=== PATIENT | male | born 1970 | race Caucasian/White ===

== ENCOUNTER 2018-04-21 21:37 | Emergency (ER) | payer MEDICAID ==
[~2018-04-21] VITALS: Ht 182.9 cm; Wt 71.0 kg
[~2018-04-21 21:37] MED LIST: ALBU6.7H INH; DICL100G15 TOP; NAPR250T4 PO; NO HOME MEDS
[2018-04-22 00:45] VITALS: BP 152/101
== END 2018-04-22 00:46 | disposition home or self-care (01) ==
LOC: ER 21:38
DX: I10 Essential (primary) hypertension (principal); J45.909 Unspecified asthma, uncomplicated; F17.210 Nicotine dependence, cigarettes, uncomplicated; Z88.6 Allergy status to analgesic agent
CPT/HCPCS: 99283

== ENCOUNTER 2018-06-16 08:43 | Emergency (ER) | payer MEDICAID, OTHER ==
[~2018-06-16] VITALS: Ht 182.9 cm; Wt 61.5 kg
[2018-06-16] MEDS ORDERED: ondansetron 4mg rapidly disintigrating tab PO ONE (09:50)
--- NOTE | 2018-06-16 10:01 | NUR ---
Notified MD regarding BP. Placed pt on non-rebreather and will reassess in 15 minutes per MD resuest.
--- NOTE | 2018-06-16 10:45 | NUR ---
Pt denies any relief from non-rebreather. MD notified, will await orders.
[2018-06-16] MEDS ORDERED: proCHLORperazine 10 MG/2 ml inj IM ONE (10:50)
[2018-06-16] MEDS ORDERED: ketorolac trometh inj. 60 MG/2 ML VIAL IM ONE (10:50)
[2018-06-16 11:00] VITALS: BP 151/94
[2018-06-16] MEDS ORDERED: HYDROcodone/acetaminophen 10/325mg tab PO ONE (11:50)
[2018-06-16] MEDS ORDERED: morphine 4 MG/ML inj SYRINge IM ONE (11:50)
== END 2018-06-16 12:59 | disposition home or self-care (01) ==
LOC: ER 08:44
DX: R51 Headache (principal); R11.0 Nausea; I10 Essential (primary) hypertension; J45.909 Unspecified asthma, uncomplicated; Z88.6 Allergy status to analgesic agent; Z98.890 Other specified postprocedural states
CPT/HCPCS: 70450; 96372; 99284; J0780; J1885

== ENCOUNTER 2021-11-29 18:42 | Inpatient (IN) | payer MEDICAID, OTHER ==
[~2021-11-29] VITALS: Ht 182.9 cm; Wt 77.3 kg
[~2021-11-29 18:42] MED LIST changes: -ALBU6.7H INH; +ALBU6.7H9 INH; +NAPR-1170 PO; -NAPR250T4 PO
--- NOTE | 2021-11-29 19:18 | NUR ---
PT PUT ON 2 L VIA NASAL CANNULA, PER MD GILMORE VERBAL ORDERS
--- NOTE | 2021-11-29 19:19 | NUR ---
PT PUT ON 2 L OXYGEN VIA NASAL CANNULA, PER MD GILMORE VERBAL ORDERS
[2021-11-29] MEDS ORDERED: ipratropium/albuterol 3ml nebule NEB ONE (19:20)
[2021-11-29] MEDS ORDERED: aspirin 81mg tab.chew PO ONE (19:20)
[2021-11-29] MEDS ORDERED: methylPREDNISolone sod succ 125mg/2ml vial IV ONE (19:40)
[2021-11-29 19:49] LABS: BASOPHILS # (AUTO) 0.1 X10'3 (0-0.2); BASOPHILS % (AUTO) 0.7 % (0-1); EOSINOPHILS % (AUTO) 10.2 % (0-6); HEMATOCRIT 47.9 % (42.0-52.0); HEMOGLOBIN 16.3 g/dl (14.0-17.9); LYMPHOCYTES # (AUTO) 4.5 X10'3 (1.1-4.8); LYMPHOCYTES % (AUTO) 44.7 % (21-51); MEAN CORPUSCULAR HGB CONC 33.9 g/dL (33.0-36.5); MEAN CORPUSCULAR VOLUME 88.3 FL (78-98); MEAN PLATELET VOLUME 7.8 FL (7.4-10.4); MONOCYTES # (AUTO) 0.6 X10'3 (0-0.9); MONOCYTES % (AUTO) 6.1 % (2-12); NEUTROPHILS # (AUTO) 3.8 X10'3 (1.8-7.7); NEUTROPHILS % (AUTO) 38.3 % (42-75); PLATELET COUNT 379 X10'3 (140-440); RED BLOOD COUNT 5.43 X10'6 (4.70-6.10); RED CELL DISTRIBUTION WIDTH 14.2 % (11.5-14.5)
[2021-11-29 20:01] LABS: D-DIMER 0.36 MG/L FEU (0-0.50)
[2021-11-29 20:11] LABS: ALANINE AMINOTRANSFERASE 59 U/L (12-78); ALBUMIN 3.8 G/DL (3.4-5.0); ALBUMIN/GLOBULIN RATIO 0.8 (1.1-1.5); ALKALINE PHOSPHATASE 101 IU/L (46-116); ANION GAP 9 (8-16); ASPARTATE AMINO TRANSFERASE 28 U/L (10-37); BILIRUBIN,TOTAL 0.4 MG/DL (0.1-1.0); BLOOD UREA NITROGEN 10 MG/DL (7-18); BUN/CREATININE RATIO 10.9 (5.4-32.0); CALCIUM 8.9 MG/DL (8.5-10.1); CHLORIDE 105 MMOL/L (99-107); CREATININE 0.92 MG/DL (0.60-1.10); GLUCOSE 93 MG/DL (70-104); POTASSIUM 3.6 MMOL/L (3.5-5.1); SODIUM 142 MMOL/L (135-145); TOTAL CARBON DIOXIDE 28.1 MMOL/L (24-32); TOTAL PROTEIN 8.5 G/DL (6.4-8.2); eGFR 87 ML/MIN
[2021-11-29 20:13] LABS: LIPASE 154 U/L (73-393); MAGNESIUM 2.1 MG/DL (1.5-2.4)
[2021-11-29] MEDS ORDERED: albuterol 2.5 MG/3 ML nebule NEB ONE (21:00)
[2021-11-29] MEDS ORDERED: nitroGLYCERIN 0.4mg/hour patch TD ONE (21:00)
[2021-11-29] MEDS ORDERED: temazepam 15mg capsule PO PRN (21:00)
[2021-11-29] MEDS ORDERED: bisacodyl 10mg suppository rectal RC PRN (22:00)
[2021-11-29] MEDS ORDERED: ondansetron 4mg rapidly disintigrating tab PO PRN (22:00)
[2021-11-29] MEDS ORDERED: acetaminophen 650mg rectal suppository RC PRN (22:00)
[2021-11-29] MEDS ORDERED: diphenhydrAMINE 25mg capsule PO PRN (22:00)
[2021-11-29] MEDS ORDERED: acetaminophen 325mg tablet PO PRN ×2 (22:00)
[2021-11-29] MEDS ORDERED: ondansetron/PF 4mg/2ml inj IV PRN (22:00)
[2021-11-29] MEDS ORDERED: magnesium hydroxide 30ml (MOM) UD suspension PO PRN (22:00)
[2021-11-29] MEDS ORDERED: diphenhydrAMINE 50 mg/ml inj IV PRN (22:00)
[2021-11-29] MEDS ORDERED: niCARdipine I.V. 50 MG in normal saline 250ml IV soln 230 ML IV SCH (22:05)
[2021-11-29 22:22] LABS: APTT 28 SECONDS (22-32)
[2021-11-29 22:33] LABS: CREATINE KINASE 315 U/L (39-308)
--- NOTE | 2021-11-29 22:38 | NUR ---
SPOKE WITH DR. BARAJAS IN PERSON. HOLDING CARDENE DRIP UNLESS BP SYSTOLIC REACHES 190-200.
[2021-11-29] MEDS: ipratropium/albuterol 3ml nebule NEB SCH (23:00)
[2021-11-29] MEDS: dextrose 5%-1/2 normal saline 1,000 ML IV SCH (23:41)
[2021-11-30] MEDS: heparin, porcine 5000 units/ml vial SQ SCH ×3 (00:14→16:37)
--- NOTE | 2021-11-30 00:35 | NUR ---
Patient in room ED 9. I have received report from Annika FLETCHER and had the opportunity to ask questions and assume patient care.
[2021-11-30 00:50] VITALS: BP 136/94
[2021-11-30] MEDS: mag hydrox/Alum hydrox/simeth 30ml oral suspension PO PRN ×2 (01:22→10:35)
[2021-11-30] MEDS: ipratropium/albuterol 3ml nebule NEB SCH ×5 (02:08→20:28)
[2021-11-30 06:00] VITALS: BP 131/75
--- NOTE | 2021-11-30 06:04 | NUR ---
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
--- NOTE | 2021-11-30 06:26 | NUR ---
Problems reprioritized. Patient report given, questions answered & plan of care reviewed with Deysi FLETCHER.
[2021-11-30 06:39] LABS: BASOPHILS % (AUTO) 0.1 % (0-1); EOSINOPHILS % (AUTO) 0 % (0-6); HEMATOCRIT 41.4 % (42.0-52.0); HEMOGLOBIN 14.1 g/dl (14.0-17.9); LYMPHOCYTES # (AUTO) 1.2 X10'3 (1.1-4.8); LYMPHOCYTES % (AUTO) 12.9 % (21-51); MEAN CORPUSCULAR VOLUME 88.3 FL (78-98); MEAN PLATELET VOLUME 7.6 FL (7.4-10.4); MONOCYTES # (AUTO) 0.1 X10'3 (0-0.9); MONOCYTES % (AUTO) 0.6 % (2-12); NEUTROPHILS # (AUTO) 7.9 X10'3 (1.8-7.7); NEUTROPHILS % (AUTO) 86.4 % (42-75); PLATELET COUNT 332 X10'3 (140-440); RED BLOOD COUNT 4.69 X10'6 (4.70-6.10); WHITE BLOOD COUNT 9.2 X10'3 (4.5-11.0)
[2021-11-30 06:50] LABS: ALANINE AMINOTRANSFERASE 44 U/L (12-78); ALBUMIN 3.2 G/DL (3.4-5.0); ALBUMIN/GLOBULIN RATIO 0.8 (1.1-1.5); ALKALINE PHOSPHATASE 78 IU/L (46-116); ANION GAP 11 (8-16); ASPARTATE AMINO TRANSFERASE 24 U/L (10-37); BILIRUBIN,TOTAL 0.3 MG/DL (0.1-1.0); BLOOD UREA NITROGEN 14 MG/DL (7-18); BUN/CREATININE RATIO 14.1 (5.4-32.0); CALCIUM 8.4 MG/DL (8.5-10.1); CHLORIDE 103 MMOL/L (99-107); CREATININE 0.99 MG/DL (0.60-1.10); GLUCOSE 172 MG/DL (70-104); SODIUM 138 MMOL/L (135-145); TOTAL CARBON DIOXIDE 24.4 MMOL/L (24-32); TOTAL PROTEIN 7.1 G/DL (6.4-8.2); eGFR 80 ML/MIN
--- NOTE | 2021-11-30 07:03 | NUR ---
Patient in room PCU 3013B. I have received report from JUSTINE VILLANUEVA and had the opportunity to ask questions and assume patient care.
[2021-11-30] MEDS ORDERED: metoprolol tartrate 50mg tablet PO SCH (08:00)
[2021-11-30] MEDS ORDERED: doxycycline inj 100 MG in normal saline 100ml IV soln 100 ML IV SCH (08:00)
[2021-11-30] MEDS ORDERED: methylPREDNISolone sod succ 125mg/2ml vial IV SCH ×2 (08:00→14:00)
[2021-11-30] MEDS: dextrose 5%-1/2 normal saline 1,000 ML IV SCH ×2 (10:30→18:00)
[2021-11-30] MEDS: docusate sod 100mg capsule PO SCH ×2 (10:36→19:52)
[2021-11-30] MEDS: pantoprazole 40mg Tablet.DR PO SCH (10:36)
[2021-11-30] MEDS: atorvastatin 20mg tablet PO SCH (10:36)
[2021-11-30] MEDS: metoprolol tartrate 25mg tablet PO SCH ×2 (10:37→19:54)
[2021-11-30] MEDS: lisinopril 10 MG tablet PO SCH (10:37)
[2021-11-30] MEDS: aspirin 81mg, enteric-coated 1 TAB TABLET.DR PO SCH (10:37)
[2021-11-30] MEDS ORDERED: niCARDipine-NS 40mg/200ml IVPB 200 ML IV SCH (10:58)
[2021-11-30 11:00] VITALS: BP 127/80
[2021-11-30] MEDS ORDERED: magnesium 4gm in 100ml NS 100 ML IV PRN (11:25)
[2021-11-30] MEDS ORDERED: potassium CL 10mEq/100ml bag 100 ML IV PRN (11:25)
[2021-11-30] MEDS ORDERED: potassium Cl 20 mEq SR tablet PO PRN ×2 (11:25)
[2021-11-30] MEDS ORDERED: magnesium Cl slow-release 64mg tablet PO PRN (11:25)
--- NOTE | 2021-11-30 12:10 | NUR ---
CRITICAL LAB VALUE TAKEN FROM LAB, REPORTED TO PRIMARY RN.
--- NOTE | 2021-11-30 12:12 | NUR ---
CRITICAL TROP Mikey, PAGED AWAITING CALL BACK Message: ANDREAS GOODMAN [id number]: CRITICAL TROP 77, DOWN FROM 157. THANK YOU JENN [phone] Transaction number: [id number]
[2021-11-30] MEDS ORDERED: ipratropium/albuterol 3ml nebule NEB PRN (14:20)
[2021-11-30] MEDS ORDERED: nitroGLYCERIN 0.4mg SUBLingual tab SL PRN (14:20)
[2021-11-30] MEDS ORDERED: aminophylline 500mg/20ml vial IV PRN (14:20)
[2021-11-30] MEDS ORDERED: regadenoson 0.4mg/5ml syringe IV PRN (14:20)
[2021-11-30] MEDS ORDERED: metoprolol tartrate 1mg/ml inj IV PRN (14:20)
[2021-11-30] MEDS: levoFLOXACIN 750MG TABLET PO SCH (14:25)
[2021-11-30] MEDS: predniSONE 20 mg tablet PO SCH (14:25)
[2021-11-30] MEDS: chlorthalidone 25mg tablet PO SCH (14:30)
[2021-11-30] MEDS: amLODIPine 5mg tablet PO SCH (14:30)
[2021-11-30 15:00] VITALS: BP 129/85
[2021-11-30 18:00] VITALS: BP 137/89
--- NOTE | 2021-11-30 18:31 | NUR ---
Patient in room PCU 3013B. I have received report from Deysi FLETCHER and had the opportunity to ask questions and assume patient care. Pt appears to be resting comfortably in bed. No s/s of distress or c/o pain. BLL, call light within reach, frequently used items inreach, frequent rounding. Will continue to montior.
--- NOTE | 2021-11-30 19:31 | NUR ---
Problems reprioritized. Patient report given, questions answered & plan of care reviewed with JUSTINE VILLANUEVA.
[2021-11-30] MEDS: K and/or MAG REPLACEMENT MC SCH (20:00)
[2021-11-30 22:00] VITALS: BP 102/62
[2021-12-01] VITALS (11 sets, daily range): BP systolic 100–135; BP diastolic 55–92
[2021-12-01 00:21] LABS: BASOPHILS % (AUTO) 0.1 % (0-1); EOSINOPHILS % (AUTO) 0 % (0-6); HEMATOCRIT 40.6 % (42.0-52.0); HEMOGLOBIN 13.6 g/dl (14.0-17.9); LYMPHOCYTES % (AUTO) 8.9 % (21-51); MEAN CORPUSCULAR HEMOGLOBIN 29.5 PG (27.0-31.0); MEAN CORPUSCULAR HGB CONC 33.5 g/dL (33.0-36.5); MEAN CORPUSCULAR VOLUME 87.9 FL (78-98); MEAN PLATELET VOLUME 7.5 FL (7.4-10.4); MONOCYTES # (AUTO) 0.7 X10'3 (0-0.9); MONOCYTES % (AUTO) 3.1 % (2-12); NEUTROPHILS # (AUTO) 19.9 X10'3 (1.8-7.7); NEUTROPHILS % (AUTO) 87.9 % (42-75); PLATELET COUNT 348 X10'3 (140-440); RED BLOOD COUNT 4.62 X10'6 (4.70-6.10); RED CELL DISTRIBUTION WIDTH 14.2 % (11.5-14.5); WHITE BLOOD COUNT 22.7 X10'3 (4.5-11.0)
[2021-12-01] MEDS: ipratropium/albuterol 3ml nebule NEB SCH ×7 (00:21→23:48)
[2021-12-01 00:32] LABS: ALANINE AMINOTRANSFERASE 43 U/L (12-78); ALBUMIN 3.1 G/DL (3.4-5.0); ALBUMIN/GLOBULIN RATIO 0.8 (1.1-1.5); ALKALINE PHOSPHATASE 73 IU/L (46-116); ANION GAP 6 (8-16); ASPARTATE AMINO TRANSFERASE 20 U/L (10-37); BILIRUBIN,TOTAL 0.2 MG/DL (0.1-1.0); BLOOD UREA NITROGEN 17 MG/DL (7-18); BUN/CREATININE RATIO 17.2 (5.4-32.0); CALCIUM 8.3 MG/DL (8.5-10.1); CHLORIDE 105 MMOL/L (99-107); CREATININE 0.99 MG/DL (0.60-1.10); GLUCOSE 153 MG/DL (70-104); SODIUM 138 MMOL/L (135-145); TOTAL CARBON DIOXIDE 26.9 MMOL/L (24-32); TOTAL PROTEIN 6.9 G/DL (6.4-8.2); eGFR 80 ML/MIN
[2021-12-01 00:36] LABS: MAGNESIUM 2.3 MG/DL (1.5-2.4); PHOSPHORUS 2.1 MG/DL (2.3-4.5)
[2021-12-01] MEDS: heparin, porcine 5000 units/ml vial SQ SCH ×4 (00:41→23:58)
[2021-12-01 01:03] LABS: TOTAL CELLS COUNTED 100
[2021-12-01 01:04] LABS: PLATELET ESTIMATE NORMAL
[2021-12-01] MEDS: dextrose 5%-1/2 normal saline 1,000 ML IV SCH ×3 (04:45→23:58)
--- NOTE | 2021-12-01 06:24 | NUR ---
Problems reprioritized. Patient report given, questions answered & plan of care reviewed with Deysi FLETCHER.
[2021-12-01 06:44] LABS: CLARITY,URINE CLEAR (Clear); GLUCOSE, URINE 100 mg/dl (Neg); KETONES,URINE NEGATIVE (Neg); LEUKOCYTE ESTERASE ,URINE NEGATIVE (Neg); NITRITES, URINE NEGATIVE (Neg); OCCULT BLOOD,URINE NEGATIVE (Neg); PROTEIN,URINE NEGATIVE (Neg); UROBILINOGEN,URINE 0.2 E.U/dL (0.2-1.0)
[2021-12-01 06:49] LABS: URINE AMPHETAMINE SCREEN POSITIVE (Neg); URINE BARBITUATE SCREEN NEGATIVE (Neg); URINE BENZODIAZEPINES SCREEN NEGATIVE (Neg); URINE CANNABINOID SCREEN NEGATIVE (Neg); URINE COCAINE SCREEN NEGATIVE (Neg); URINE METHADONE SCREEN NEGATIVE (Neg); URINE OPIATE SCREEN NEGATIVE (Neg); URINE PHENCYCLIDINE SCREEN NEGATIVE (Neg)
[2021-12-01 06:55] LABS: COLOR,URINE STRAW (Yellow); UA COLLECTION TYPE CLN CATCH MIDSTREAM
--- NOTE | 2021-12-01 07:05 | NUR ---
Patient in room PCU 3013B. I have received report from JUSTINE WELLS and had the opportunity to ask questions and assume patient care. Addendum: 12/01/21 at 0717 by Bianca Teixeira RN FROM JUSTINE VILLANUEVA RN
[2021-12-01] MEDS: K and/or MAG REPLACEMENT MC SCH ×2 (08:00→20:00)
[2021-12-01] MEDS ORDERED: aminophylline inj. 0 ML IV ONE (08:39)
[2021-12-01] MEDS: docusate sod 100mg capsule PO SCH ×2 (10:43→20:01)
[2021-12-01] MEDS: pantoprazole 40mg Tablet.DR PO SCH (10:43)
[2021-12-01] MEDS: lisinopril 10 MG tablet PO SCH (10:43)
[2021-12-01] MEDS: levoFLOXACIN 750MG TABLET PO SCH (10:43)
[2021-12-01] MEDS: atorvastatin 20mg tablet PO SCH (10:43)
[2021-12-01] MEDS: aspirin 81mg, enteric-coated 1 TAB TABLET.DR PO SCH (10:43)
[2021-12-01] MEDS: chlorthalidone 25mg tablet PO SCH (10:43)
[2021-12-01] MEDS: amLODIPine 5mg tablet PO SCH (10:44)
[2021-12-01] MEDS: metoprolol tartrate 25mg tablet PO SCH ×2 (10:44→20:09)
[2021-12-01] MEDS: predniSONE 20 mg tablet PO SCH (10:44)
--- NOTE | 2021-12-01 18:49 | NUR ---
Problems reprioritized. Patient report given, questions answered & plan of care reviewed with JUSTINE VILLANUEVA.
--- NOTE | 2021-12-01 18:56 | NUR ---
Patient in room PCU 3013B. I have received report from Deysi FLETCHER and had the opportunity to ask questions and assume patient care. Pt is laying down in bed resting comfortably. Pt denies any c/o pain. No s/s of distress. BLL, call light within reach, frequently used items in reach, frequent roundin, donor services team leader socks on. Will continue to montior.
[2021-12-02 02:00] VITALS: BP 149/77
[2021-12-02] MEDS: ipratropium/albuterol 3ml nebule NEB SCH ×3 (02:08→11:00)
[2021-12-02 06:00] VITALS: BP 126/81
--- NOTE | 2021-12-02 06:08 | NUR ---
Problems reprioritized. Patient report given, questions answered & plan of care reviewed with Deysi FLETCHER.
--- NOTE | 2021-12-02 06:15 | NUR ---
Patient in room PCU 3013B. I have received report from JUSTINE VILLANUEVA and had the opportunity to ask questions and assume patient care.
[2021-12-02 07:30] LABS: BASOPHILS % (AUTO) 0.2 % (0-1); EOSINOPHILS % (AUTO) 0.1 % (0-6); HEMATOCRIT 40.7 % (42.0-52.0); HEMOGLOBIN 13.6 g/dl (14.0-17.9); LYMPHOCYTES % (AUTO) 32.3 % (21-51); MEAN CORPUSCULAR HEMOGLOBIN 29.6 PG (27.0-31.0); MEAN CORPUSCULAR HGB CONC 33.5 g/dL (33.0-36.5); MEAN CORPUSCULAR VOLUME 88.2 FL (78-98); MEAN PLATELET VOLUME 7.5 FL (7.4-10.4); MONOCYTES # (AUTO) 0.9 X10'3 (0-0.9); MONOCYTES % (AUTO) 4.9 % (2-12); NEUTROPHILS # (AUTO) 11.6 X10'3 (1.8-7.7); NEUTROPHILS % (AUTO) 62.5 % (42-75); PLATELET COUNT 348 X10'3 (140-440); RED BLOOD COUNT 4.61 X10'6 (4.70-6.10); RED CELL DISTRIBUTION WIDTH 14.3 % (11.5-14.5); WHITE BLOOD COUNT 18.5 X10'3 (4.5-11.0)
[2021-12-02 07:46] LABS: ALANINE AMINOTRANSFERASE 46 U/L (12-78); ALBUMIN 3.2 G/DL (3.4-5.0); ALBUMIN/GLOBULIN RATIO 0.9 (1.1-1.5); ALKALINE PHOSPHATASE 68 IU/L (46-116); ANION GAP 10 (8-16); ASPARTATE AMINO TRANSFERASE 20 U/L (10-37); BILIRUBIN,TOTAL 0.3 MG/DL (0.1-1.0); BLOOD UREA NITROGEN 21 MG/DL (7-18); BUN/CREATININE RATIO 22.6 (5.4-32.0); CALCIUM 8.6 MG/DL (8.5-10.1); CHLORIDE 104 MMOL/L (99-107); CREATININE 0.93 MG/DL (0.60-1.10); GLUCOSE 86 MG/DL (70-104); MAGNESIUM 2.2 MG/DL (1.5-2.4); PHOSPHORUS 3.7 MG/DL (2.3-4.5); POTASSIUM 3.5 MMOL/L (3.5-5.1); SODIUM 142 MMOL/L (135-145); TOTAL CARBON DIOXIDE 28.1 MMOL/L (24-32); TOTAL PROTEIN 6.9 G/DL (6.4-8.2); eGFR 86 ML/MIN
[2021-12-02] MEDS: docusate sod 100mg capsule PO SCH (08:36)
[2021-12-02] MEDS: aspirin 81mg, enteric-coated 1 TAB TABLET.DR PO SCH (08:36)
[2021-12-02] MEDS: amLODIPine 5mg tablet PO SCH (08:37)
[2021-12-02] MEDS: predniSONE 20 mg tablet PO SCH (08:37)
[2021-12-02] MEDS: chlorthalidone 25mg tablet PO SCH (08:38)
[2021-12-02] MEDS: atorvastatin 20mg tablet PO SCH (08:38)
[2021-12-02] MEDS: lisinopril 10 MG tablet PO SCH (08:38)
[2021-12-02] MEDS: metoprolol tartrate 25mg tablet PO SCH (08:39)
[2021-12-02] MEDS ORDERED: LISI10TA27 PO (08:39)
[2021-12-02] MEDS ORDERED: LEVO750T68 PO (08:39)
[2021-12-02] MEDS ORDERED: PANT40TA54 PO (08:39)
[2021-12-02] MEDS ORDERED: NOR5T PO (08:39)
[2021-12-02] MEDS ORDERED: BUDE10.22 INH (08:39)
[2021-12-02] MEDS ORDERED: ASPI-1071 PO (08:39)
[2021-12-02] MEDS ORDERED: CHLO25TA11 PO (08:39)
[2021-12-02] MEDS ORDERED: LOP25T PO (08:39)
[2021-12-02] MEDS ORDERED: ALBU8.5H17 INH (08:39)
[2021-12-02] MEDS ORDERED: PRED20TA PO (08:39)
[2021-12-02] MEDS: heparin, porcine 5000 units/ml vial SQ SCH (08:40)
[2021-12-02] MEDS: pantoprazole 40mg Tablet.DR PO SCH (08:51)
[2021-12-02 09:18] LABS: CHOL/HDL RATIO 4.6 (0.00-4.99); CHOLESTEROL 269 MG/DL (0-200); HDL CHOLESTEROL 59 MG/DL (35-60); LDL CHOLESTEROL 172 MG/DL (50-100); TRIGLYCERIDES 124 MG/DL (20-135)
[2021-12-02] MEDS: dextrose 5%-1/2 normal saline 1,000 ML IV SCH (10:00)
[2021-12-02] MEDS: levoFLOXACIN 750MG TABLET PO SCH (10:31)
[2021-12-02 11:00] VITALS: BP 120/84
--- NOTE | 2021-12-02 11:41 | NUR ---
PATIENT STABLE AND APPROPRIATE FOR DISCHARGE, IV REMOVED, TELE REMOVED, EDUCATION GIVEN, ALL BELONGINGS SENT WITH PATIENT, NEW MEDS E-SCRIPTED TO PREFERRED PHARMACY, INFORMATION FOR PRIMARY PROVIDER TO BE ESTABLISHED GIVEN, PATIENT TAKEN TO LOBBY WHERE PATIENT WILL DRIVE SELF HOME
[2021-12-02] MEDS ORDERED: ATOR20TA66 PO (21:04)
== END 2021-12-02 11:41 | disposition home or self-care (01) | DRG 280 ==
LOC: ER 18:43 → ED HOLD 22:05 → PCU 3S 11-30 00:49
PROVIDERS: ADMIT Family Medicine; ATTEND Family Medicine
PROC: 4A02XM4 Measurement of Cardiac Total Activity, External Approach (ICD-10-PCS; principal; 2021-12-01)
PROC: 3E033HZ Introduction of Radioactive Substance into Peripheral Vein, Percutaneous Approach (ICD-10-PCS; 2021-12-01)
DX: I11.0 Hypertensive heart disease with heart failure (principal); I21.A1 Myocardial infarction type 2; I50.33 Acute on chronic diastolic (congestive) heart failure; J96.00 Acute respiratory failure, unspecified whether with hypoxia or hypercapnia; J18.9 Pneumonia, unspecified organism; I16.1 Hypertensive emergency; J44.0 Chronic obstructive pulmonary disease with (acute) lower respiratory infection; J44.1 Chronic obstructive pulmonary disease with (acute) exacerbation; F15.10 Other stimulant abuse, uncomplicated; Z20.822 Contact with and (suspected) exposure to COVID-19; J20.9 Acute bronchitis, unspecified; Z79.899 Other long term (current) drug therapy; Z87.442 Personal history of urinary calculi; Z88.8 Allergy status to other drugs, medicaments and biological substances; Z87.891 Personal history of nicotine dependence
CPT/HCPCS: 36415; 71045; 78452; 80053; 80061; 80305; 81003; 82550; 83690; 83735; 83880; 84100; 84439; 84443; 84484; 85007; 85025; 85379; 85610; 85730; 87081; 87502; 87503; 87635; 93005; 93017; 93306; 94640; 94760; 96374; 99291; A9500; C9803; G0378; J0280; J1644; J2785; J2930; J3490; J7042; J7512

== ENCOUNTER 2023-02-01 04:36 | Emergency (ER) | payer SELFPAY ==
[~2023-02-01] VITALS: Ht 182.9 cm; Wt 84.1 kg
[~2023-02-01 04:36] MED LIST changes: -ALBU6.7H9 INH; +ALBU8.5H17 INH; +ASPI-1071 PO; +ATOR20TA66 PO; +BUDE10.22 INH; +CHLO25TA11 PO; -DICL100G15 TOP; +LEVO750T68 PO; +LISI10TA27 PO; +LOP25T PO; -NAPR-1170 PO; -NO HOME MEDS; +NOR5T PO; +PANT40TA54 PO; +PRED20TA PO
[2023-02-01] MEDS ORDERED: ipratropium/albuterol 3ml nebule NEB ONE (04:45)
[2023-02-01] MEDS ORDERED: methylPREDNISolone sod succ 125mg/2ml vial IV ONE (04:50)
[2023-02-01 04:53] VITALS: PULSE 97; RESP 16; O2SAT 97
[2023-02-01 04:59] VITALS: PULSE 100; RESP 16; O2SAT 98
[2023-02-01 05:57] LABS: RED CELL DISTRIBUTION WIDTH 13.6 % (11.5-14.5)
[2023-02-01 05:59] LABS: BASOPHILS # (AUTO) 0.1 X10'3 (0-0.2); BASOPHILS % (AUTO) 1.1 % (0-1); EOSINOPHILS # (AUTO) 0.4 X10'3 (0-0.9); EOSINOPHILS % (AUTO) 5.2 % (0-6); HEMATOCRIT 45.2 % (42.0-52.0); HEMOGLOBIN 15.3 g/dl (14.0-17.9); LYMPHOCYTES # (AUTO) 2.8 X10'3 (1.1-4.8); LYMPHOCYTES % (AUTO) 32.6 % (21-51); MEAN CORPUSCULAR HEMOGLOBIN 30.3 PG (27.0-31.0); MEAN CORPUSCULAR HGB CONC 33.9 g/dL (33.0-36.5); MEAN CORPUSCULAR VOLUME 89.3 FL (78-98); MONOCYTES # (AUTO) 0.5 X10'3 (0-0.9); MONOCYTES % (AUTO) 5.6 % (2-12); NEUTROPHILS # (AUTO) 4.8 X10'3 (1.8-7.7); NEUTROPHILS % (AUTO) 55.5 % (42-75); PLATELET COUNT 306 X10'3 (140-440); RED BLOOD COUNT 5.06 X10'6 (4.70-6.10); WHITE BLOOD COUNT 8.6 X10'3 (4.5-11.0)
[2023-02-01 06:08] LABS: ALBUMIN 3.6 G/DL (3.4-5.0); ANION GAP 6 (8-16); BILIRUBIN,TOTAL 0.4 MG/DL (0.1-1.0); BLOOD UREA NITROGEN 16 MG/DL (7-18); BUN/CREATININE RATIO 18.2 (10.0-20.0); CALCIUM 9.5 MG/DL (8.5-10.1); CHLORIDE 103 MMOL/L (99-107); CREATININE 0.88 MG/DL (0.60-1.10); GLUCOSE 112 MG/DL (70-104); POTASSIUM 3.7 MMOL/L (3.5-5.1); SODIUM 138 MMOL/L (135-145); TOTAL CARBON DIOXIDE 28.6 MMOL/L (24-32); TOTAL PROTEIN 7.5 G/DL (6.4-8.2); eCRCL 109 ML/MIN; eGFR > 90 ML/MIN
[2023-02-01 06:09] LABS: ALANINE AMINOTRANSFERASE 33 U/L (12-78); ALBUMIN/GLOBULIN RATIO 0.9 (1.1-1.5); ALKALINE PHOSPHATASE 84 IU/L (46-116); ASPARTATE AMINO TRANSFERASE 18 U/L (10-37)
[2023-02-01] MEDS ORDERED: chlorthalidone 25mg tablet PO ONE (06:10)
[2023-02-01] MEDS ORDERED: amLODIPine 5mg tablet PO ONE (06:10)
[2023-02-01] MEDS ORDERED: lisinopril 10 MG tablet PO ONE (06:10)
[2023-02-01] MEDS ORDERED: CHLO25TA10 PO (06:12)
[2023-02-01] MEDS ORDERED: LISI20TA28 PO (06:12)
[2023-02-01] MEDS ORDERED: METO-539 PO (06:12)
[2023-02-01] MEDS ORDERED: AMLO5TAB PO (06:12)
[2023-02-01] MEDS ORDERED: PRED20TA PO (06:13)
[2023-02-01 06:15] LABS: PRO BRAIN NATRIURETIC PEPTIDE 53 PG/ML (0-125)
[2023-02-01 08:37] VITALS: BP 151/111; PULSE 96; RESP 16; TEMP 97.8; O2SAT 97
== END 2023-02-01 08:46 | disposition home or self-care (01) ==
LOC: ER 04:36
DX: J45.909 Unspecified asthma, uncomplicated (principal); I10 Essential (primary) hypertension; Z88.5 Allergy status to narcotic agent; Z79.899 Other long term (current) drug therapy; Z87.891 Personal history of nicotine dependence
CPT/HCPCS: 36415; 71045; 80053; 83880; 84145; 84484; 85025; 93005; 94640; 96374; 99285; J2930; 94760

== ENCOUNTER 2023-06-16 02:32 | Emergency (ER) | payer OTHER ==
[~2023-06-16] VITALS: Ht 182.9 cm; Wt 84.2 kg
[~2023-06-16 02:32] MED LIST changes: +AMLO5TAB PO; +CHLO25TA10 PO
[2023-06-16 02:38] VITALS: TEMP 100.1
[2023-06-16] MEDS ORDERED: ipratropium 0.5 MG/2.5ML nebule IH ONE (03:40)
[2023-06-16] MEDS ORDERED: albuterol 2.5 MG/3 ML nebule NEB ONE (03:40)
[2023-06-16] MEDS: dexamethasone sod phosphate 10mg/ml inj PO STA (04:32)
[2023-06-16 04:42] LABS: BASOPHILS # (AUTO) 0.1 X10'3 (0-0.2); BASOPHILS % (AUTO) 0.7 % (0-1); EOSINOPHILS # (AUTO) 0.4 X10'3 (0-0.9); EOSINOPHILS % (AUTO) 3.2 % (0-6); HEMATOCRIT 40.7 % (42.0-52.0); HEMOGLOBIN 13.6 g/dl (14.0-17.9); LYMPHOCYTES # (AUTO) 3.1 X10'3 (1.1-4.8); LYMPHOCYTES % (AUTO) 27.7 % (21-51); MEAN CORPUSCULAR HEMOGLOBIN 29.8 PG (27.0-31.0); MEAN CORPUSCULAR HGB CONC 33.3 g/dL (33.0-36.5); MEAN CORPUSCULAR VOLUME 89.4 FL (78-98); MEAN PLATELET VOLUME 7.7 FL (7.4-10.4); MONOCYTES % (AUTO) 9.2 % (2-12); NEUTROPHILS # (AUTO) 6.7 X10'3 (1.8-7.7); NEUTROPHILS % (AUTO) 59.2 % (42-75); PLATELET COUNT 304 X10'3 (140-440); RED BLOOD COUNT 4.55 X10'6 (4.70-6.10); RED CELL DISTRIBUTION WIDTH 13.7 % (11.5-14.5); WHITE BLOOD COUNT 11.3 X10'3 (4.5-11.0)
[2023-06-16 04:45] VITALS: PULSE 102; RESP 16; O2SAT 98
[2023-06-16] MEDS: ipratropium/albuterol 3ml nebule NEB ONE (04:45)
[2023-06-16 04:53] VITALS: PULSE 106; RESP 16; O2SAT 96
[2023-06-16] MEDS ORDERED: ROBDML PO (05:45)
[2023-06-16] MEDS ORDERED: ACET-75 PO (05:45)
[2023-06-16] MEDS ORDERED: IBUP-1984 PO (05:45)
[2023-06-16 06:03] VITALS: BP 157/102; PULSE 94; RESP 14; O2SAT 97
== END 2023-06-16 06:04 | disposition home or self-care (01) ==
LOC: ER 02:33
DX: J06.9 Acute upper respiratory infection, unspecified (principal); J45.909 Unspecified asthma, uncomplicated; I10 Essential (primary) hypertension; Z88.5 Allergy status to narcotic agent; Z79.899 Other long term (current) drug therapy
CPT/HCPCS: 36415; 71046; 83605; 84145; 85025; 87040; 94640; 99284; J1100; 94760

== ENCOUNTER 2023-09-16 18:49 | Inpatient (IN) | payer OTHER ==
[~2023-09-16] VITALS: Ht 182.9 cm; Wt 80.5 kg
[2023-09-16 20:24] LABS: BASOPHILS # (AUTO) 0.1 X10'3 (0-0.2); BASOPHILS % (AUTO) 0.9 % (0-1); EOSINOPHILS # (AUTO) 0.1 X10'3 (0-0.9); EOSINOPHILS % (AUTO) 0.7 % (0-6); HEMATOCRIT 46.9 % (42.0-52.0); HEMOGLOBIN 15.4 g/dl (14.0-17.9); LYMPHOCYTES # (AUTO) 4.1 X10'3 (1.1-4.8); LYMPHOCYTES % (AUTO) 32.6 % (21-51); MEAN CORPUSCULAR HEMOGLOBIN 29.7 PG (27.0-31.0); MEAN CORPUSCULAR HGB CONC 32.9 g/dL (33.0-36.5); MEAN CORPUSCULAR VOLUME 90.5 FL (78-98); MEAN PLATELET VOLUME 7.6 FL (7.4-10.4); MONOCYTES # (AUTO) 0.9 X10'3 (0-0.9); MONOCYTES % (AUTO) 7.1 % (2-12); NEUTROPHILS # (AUTO) 7.3 X10'3 (1.8-7.7); NEUTROPHILS % (AUTO) 58.7 % (42-75); PLATELET COUNT 366 X10'3 (140-440); RED BLOOD COUNT 5.18 X10'6 (4.70-6.10); WHITE BLOOD COUNT 12.5 X10'3 (4.5-11.0)
[2023-09-16 20:30] LABS: ALANINE AMINOTRANSFERASE 44 U/L (12-78); ALBUMIN 3.8 G/DL (3.4-5.0); ALKALINE PHOSPHATASE 67 IU/L (46-116); ANION GAP 10 (8-16); ASPARTATE AMINO TRANSFERASE 21 U/L (10-37); BILIRUBIN,TOTAL 0.4 MG/DL (0.1-1.0); BLOOD UREA NITROGEN 18 MG/DL (7-18); BUN/CREATININE RATIO 16.4 (10.0-20.0); CALCIUM 9.4 MG/DL (8.5-10.1); CHLORIDE 104 MMOL/L (99-107); GLUCOSE 66 MG/DL (70-104); POTASSIUM 3.8 MMOL/L (3.5-5.1); SODIUM 143 MMOL/L (135-145); TOTAL CARBON DIOXIDE 29.2 MMOL/L (24-32); TOTAL PROTEIN 7.6 G/DL (6.4-8.2); eCRCL 86 ML/MIN; eGFR 70 ML/MIN
[2023-09-16] MEDS ORDERED: aspirin 325mg tablet, delayed-release (Ecotrin) PO ONE (21:05)
[2023-09-16] MEDS ORDERED: ondansetron 4mg rapidly disintigrating tab PO PRN (21:15)
[2023-09-16] MEDS ORDERED: magnesium Cl slow-release 64mg tablet PO PRN (21:15)
[2023-09-16] MEDS ORDERED: ondansetron/PF 4mg/2ml inj IV PRN (21:15)
[2023-09-16] MEDS ORDERED: acetaminophen 325mg tablet PO PRN (21:15)
[2023-09-16] MEDS ORDERED: magnesium hydroxide 30ml (MOM) UD suspension PO PRN (21:15)
[2023-09-16] MEDS ORDERED: morphine 2 MG/ML inj. syringe IV PRN ×2 (21:15)
[2023-09-16] MEDS ORDERED: mag hydrox/Alum hydrox/simeth 30ml oral suspension PO PRN (21:15)
[2023-09-16] MEDS ORDERED: HYDROcodone/acetaminophen 10/325mg tab PO PRN (21:15)
[2023-09-16] MEDS ORDERED: magnesium 4gm in 100ml NS 100 ML IV PRN (21:15)
[2023-09-16] MEDS ORDERED: magnesium 2GM in 50ml NS 50 ML IV PRN (21:15)
[2023-09-16] MEDS ORDERED: HYDROcodone/acetaminophen 5mg/325mg tablet PO PRN (21:15)
[2023-09-16] MEDS ORDERED: potassium Cl 20 mEq SR tablet PO PRN ×2 (21:15)
[2023-09-16] MEDS ORDERED: potassium Cl 40MEQ/1/2NS 520ml 520 ML IV PRN (21:15)
[2023-09-16] MEDS: atorvastatin 20mg tablet PO ONE (21:20)
[2023-09-16] MEDS: clopidogrel 300mg tablet PO ONE (21:21)
[2023-09-16] MEDS: amLODIPine 5mg tablet PO ONE (21:21)
[2023-09-16] MEDS: normal saline 1000ml 1,000 ML IV SCH (21:36)
[2023-09-16 21:40] LABS: MAGNESIUM 2.4 MG/DL (1.5-2.4); PHOSPHORUS 4.1 MG/DL (2.3-4.5)
[2023-09-16 21:42] LABS: HEMOGLOBIN A1C 5.4 % (4.5-6.2)
[2023-09-16] MEDS: PERFLUTREN PROTEIN-A MICROSPHR (Optison) 0.22 MG/ML 3ML VIAL IV ONE (22:00)
[2023-09-17 00:14] VITALS: BP 165/121; PULSE 89; RESP 18; TEMP 98.2; O2SAT 95
[2023-09-17 00:59] VITALS: RESP 18; O2SAT 95
[2023-09-17] MEDS ORDERED: albuterol 2.5 MG/3 ML nebule NEB PRN (01:45)
[2023-09-17 02:00] VITALS: BP 158/102; PULSE 94
[2023-09-17 06:00] VITALS: BP 155/116; PULSE 93; RESP 18; TEMP 98.1; O2SAT 99
[2023-09-17 07:17] LABS: BASOPHILS % (AUTO) 0.4 % (0-1); EOSINOPHILS # (AUTO) 0.2 X10'3 (0-0.9); EOSINOPHILS % (AUTO) 1.5 % (0-6); HEMATOCRIT 48.1 % (42.0-52.0); HEMOGLOBIN 15.8 g/dl (14.0-17.9); LYMPHOCYTES # (AUTO) 3.7 X10'3 (1.1-4.8); LYMPHOCYTES % (AUTO) 31.9 % (21-51); MEAN CORPUSCULAR HGB CONC 32.8 g/dL (33.0-36.5); MEAN CORPUSCULAR VOLUME 91.2 FL (78-98); MEAN PLATELET VOLUME 7.4 FL (7.4-10.4); MONOCYTES # (AUTO) 0.7 X10'3 (0-0.9); MONOCYTES % (AUTO) 6.1 % (2-12); NEUTROPHILS # (AUTO) 6.9 X10'3 (1.8-7.7); NEUTROPHILS % (AUTO) 60.1 % (42-75); PLATELET COUNT 357 X10'3 (140-440); RED BLOOD COUNT 5.27 X10'6 (4.70-6.10); RED CELL DISTRIBUTION WIDTH 15.1 % (11.5-14.5); WHITE BLOOD COUNT 11.5 X10'3 (4.5-11.0)
[2023-09-17 07:34] LABS: HIV ANTIBODY 1&2 RAPID NON-REACTIVE (Neg)
[2023-09-17 07:37] LABS: ALANINE AMINOTRANSFERASE 43 U/L (12-78); ALBUMIN 3.7 G/DL (3.4-5.0); ALKALINE PHOSPHATASE 64 IU/L (46-116); ANION GAP 7 (8-16); ASPARTATE AMINO TRANSFERASE 20 U/L (10-37); BILIRUBIN,TOTAL 1.1 MG/DL (0.1-1.0); BLOOD UREA NITROGEN 14 MG/DL (7-18); BUN/CREATININE RATIO 14.7 (10.0-20.0); CALCIUM 8.9 MG/DL (8.5-10.1); CHLORIDE 104 MMOL/L (99-107); CHOL/HDL RATIO 4.9 (0.00-4.99); CHOLESTEROL 245 MG/DL (0-200); CREATININE 0.95 MG/DL (0.60-1.10); GLUCOSE 85 MG/DL (70-104); HDL CHOLESTEROL 50 MG/DL (35-60); LDL CHOLESTEROL 168 MG/DL (50-100); MAGNESIUM 2.4 MG/DL (1.5-2.4); PHOSPHORUS 4.1 MG/DL (2.3-4.5); POTASSIUM 3.9 MMOL/L (3.5-5.1); SODIUM 141 MMOL/L (135-145); TOTAL CARBON DIOXIDE 29.9 MMOL/L (24-32); TOTAL PROTEIN 7.5 G/DL (6.4-8.2); TRIGLYCERIDES 151 MG/DL (20-135); eCRCL 100 ML/MIN; eGFR 83 ML/MIN
[2023-09-17] MEDS ORDERED: K and/or MAG REPLACEMENT MC SCH (08:00)
[2023-09-17] MEDS: docusate sod 100mg capsule PO SCH (08:00)
[2023-09-17 09:08] VITALS: BP_SYST 155
[2023-09-17] MEDS: amLODIPine 5mg tablet PO SCH (09:08)
[2023-09-17] MEDS: atorvastatin 20mg tablet PO SCH (09:09)
[2023-09-17] MEDS: clopidogrel 75mg tablet PO SCH (09:09)
[2023-09-17] MEDS: multivitamins, therapeutics tablet PO SCH (09:09)
[2023-09-17] MEDS: cyanocobalamin 500mcg tablet PO SCH (09:10)
[2023-09-17] MEDS: aspirin 81mg, enteric-coated 1 TAB TABLET.DR PO SCH (09:10)
[2023-09-17] MEDS: thiamine 100mg/ml 2ml inj. IV SCH (09:10)
[2023-09-18 13:35] LABS: HBSAG SCREEN Negative (Negative); HEP A AB, IGM Negative (Negative); HEP B CORE AB, IGM Negative (Negative); HEPATITIS C VIRUS ANTIBODY Non Reactive (Non Reactive)
== END 2023-09-17 09:45 | disposition left against medical advice (07) | DRG 552 ==
LOC: ER 18:49 → ED HOLD 21:22 → EDBEDREQ 23:28 → ORTHO 4S 23:45
PROVIDERS: ADMIT Surgery; ATTEND Family Medicine
DX: M48.02 Spinal stenosis, cervical region (principal); I10 Essential (primary) hypertension; J44.9 Chronic obstructive pulmonary disease, unspecified; E78.5 Hyperlipidemia, unspecified; F17.210 Nicotine dependence, cigarettes, uncomplicated; Z53.29 Procedure and treatment not carried out because of patient's decision for other reasons; Z83.3 Family history of diabetes mellitus; Z88.8 Allergy status to other drugs, medicaments and biological substances; Z80.42 Family history of malignant neoplasm of prostate; Z80.8 Family history of malignant neoplasm of other organs or systems; Z79.899 Other long term (current) drug therapy; Z88.6 Allergy status to analgesic agent; Z71.6 Tobacco abuse counseling
CPT/HCPCS: 36415; 80053; 80061; 80074; 83036; 83735; 84100; 85025; 86703; 87081; 92508; 92616; 93005; 99285; G0378; J3411; J7030

== ENCOUNTER 2024-06-08 22:55 | Emergency (ER) | payer SELFPAY ==
[~2024-06-08] VITALS: Ht 182.9 cm; Wt 84.1 kg
[~2024-06-08 22:55] MED LIST changes: -BUDE10.22 INH; -CHLO25TA10 PO; -CHLO25TA11 PO; -LEVO750T68 PO; -LISI10TA27 PO; -LOP25T PO; -NOR5T PO; -PANT40TA54 PO; -PRED20TA PO
[2024-06-08 22:57] VITALS: BP 173/114; PULSE 110; RESP 20; TEMP 98.8; O2SAT 99
[2024-06-08 23:24] LABS: BASOPHILS # (AUTO) 0.1 X10'3 (0-0.2); BASOPHILS % (AUTO) 0.9 % (0-1); EOSINOPHILS # (AUTO) 0.5 X10'3 (0-0.9); EOSINOPHILS % (AUTO) 4.2 % (0-6); HEMATOCRIT 44.2 % (42.0-52.0); HEMOGLOBIN 14.9 g/dl (14.0-17.9); LYMPHOCYTES % (AUTO) 16.7 % (21-51); MEAN CORPUSCULAR HEMOGLOBIN 29.8 PG (27.0-31.0); MEAN CORPUSCULAR HGB CONC 33.7 g/dL (33.0-36.5); MEAN CORPUSCULAR VOLUME 88.3 FL (78-98); MEAN PLATELET VOLUME 7.5 FL (7.4-10.4); MONOCYTES # (AUTO) 0.9 X10'3 (0-0.9); MONOCYTES % (AUTO) 7.8 % (2-12); NEUTROPHILS # (AUTO) 8.6 X10'3 (1.8-7.7); NEUTROPHILS % (AUTO) 70.4 % (42-75); PLATELET COUNT 335 X10'3 (140-440); RED BLOOD COUNT 5.01 X10'6 (4.70-6.10); RED CELL DISTRIBUTION WIDTH 13.6 % (11.5-14.5); WHITE BLOOD COUNT 12.1 X10'3 (4.5-11.0)
[2024-06-08 23:32] LABS: BILIRUBIN,URINE NEGATIVE (Neg); CLARITY,URINE CLEAR (Clear); COLOR,URINE YELLOW (Yellow); GLUCOSE, URINE NEGATIVE (Neg); KETONES,URINE NEGATIVE (Neg); LEUKOCYTE ESTERASE ,URINE NEGATIVE (Neg); NITRITES, URINE NEGATIVE (Neg); OCCULT BLOOD,URINE MODERATE (Neg); PROTEIN,URINE NEGATIVE (Neg); UROBILINOGEN,URINE 0.2 E.U/dL (0.2-1.0)
[2024-06-08 23:38] LABS: UA COLLECTION TYPE NON-SPECIFIED
[2024-06-08 23:41] LABS: ALANINE AMINOTRANSFERASE 39 U/L (12-78); ALBUMIN 3.6 G/DL (3.4-5.0); ALKALINE PHOSPHATASE 76 IU/L (46-116); ANION GAP 11 (8-16); ASPARTATE AMINO TRANSFERASE 27 U/L (10-37); BILIRUBIN,TOTAL 0.5 MG/DL (0.1-1.0); BLOOD UREA NITROGEN 13 MG/DL (7-18); BUN/CREATININE RATIO 8.9 (10.0-20.0); CALCIUM 9.7 MG/DL (8.5-10.1); CHLORIDE 104 MMOL/L (99-107); CREATININE 1.46 MG/DL (0.60-1.10); GLUCOSE 110 MG/DL (70-104); LIPASE 33 U/L (16-77); POTASSIUM 3.3 MMOL/L (3.5-5.1); SODIUM 142 MMOL/L (135-145); TOTAL CARBON DIOXIDE 26.7 MMOL/L (24-32); TOTAL PROTEIN 7.1 G/DL (6.4-8.2); eCRCL 64 ML/MIN; eGFR 51 ML/MIN
[2024-06-08 23:41] LABS: BACTERIA,URINE FEW /HPF (Neg); CAL OXALATE CRYSTALS FEW /HPF (NEGATIVE); HYALINE CASTS 0-3 /LPF (NEGATIVE); MUCUS STRANDS MODERATE /LPF (Neg); RBC,URINE 20-50 /HPF (0-2); SQUAMOUS EPITHELIAL CELL,UR FEW /LPF (FEW); WBC,URINE 0-4 /HPF (0-4)
== END 2024-06-09 00:45 | disposition left against medical advice (07) ==
LOC: ER 22:56
DX: R10.12 Left upper quadrant pain (principal); R11.0 Nausea; K59.00 Constipation, unspecified; Z53.21 Procedure and treatment not carried out due to patient leaving prior to being seen by health care provider; Z88.5 Allergy status to narcotic agent
CPT/HCPCS: 36415; 80053; 81001; 83690; 85025

== ENCOUNTER 2025-01-31 07:59 | Emergency (ER) | payer BC ==
[~2025-01-31] VITALS: Ht 182.9 cm; Wt 81.8 kg
[2025-01-31 08:02] VITALS: TEMP 97.8
[2025-01-31] MEDS ORDERED: ALBU8HFA INH (09:10)
--- NOTE | 2025-01-31 09:11 | Physician Documentation ---
History of Present Illness ~ Chief Complaint: Flu Symptoms Stated Complaint: DIFF BREATHING ASTHMA Time Seen by MD: 08:52 Primary Medical Doctor: None Mode of Arrival: POV HPI 71-year-old male with a history of asthma presents with flu-like symptoms. States his chest feels tight. Reports getting short of breath when walking around. Denies any chest pain per se. It states that he can not take a full breath Medication Reconciliation Allergies: Coded Allergies: hydromorphone HCl (Verified Adverse Reaction, Mild, "I JUST DON'T LIKE IT", 06/08/24) Scheduled Amlodipine Besylate (Amlodipine Besylate), 1 TABLET PO DAILY Aspirin (Ecotrin*), 1 TAB PO DAILY Atorvastatin Calcium (Atorvastatin Calcium), 20 MG PO DAILY Scheduled PRN Albuterol Sulfate (Proair Hfa), 2 PUFFS INH Q4HPRN PRN for wheezing albuterol inhaler (Pro-Air Inhaler), 2 PUFFS INH Q4HPRN PRN for wheezing Past Medical History Past Medical History: Hypertension, COPD Past Surgical History: abdominal surgery, orthopedic surgeries Patient History: FH: diabetes mellitus FATHER FH: prostate cancer FATHER FH: thyroid cancer MOTHER Alcohol Use: Occasionally Drug Use: none Lives with: Spouse Lives In: Home Occupation: employed Review of Systems All Other Systems at this time: Reviewed and Negative ROS As stated above in the HPI, otherwise all systems are reviewed and negative. Physical Exam Vital Signs: Temperature: 97.8, Heart Rate: 112, Respiratory Rate: 16, BP: 152/107, Pulse Oximetry: 99, Weight: 81.820 Oxygen Flow Rate: 0 Physical Exam General: Alert, no apparent distress. HEENT: PERRL, EOMI, no injection, moist mucous membranes. Respiratory: Tight sounding with bilateral wheezes Chest: No accessory muscle use. Cardiovascular: Regular rate and rhythm, no murmurs. Psychiatric: Normal mood and affect. Skin: Normal color, warm and dry. No edema, no ecchymosis. Progress Results/Orders Results/Orders Orders - DELMER MCCABE NP Svn Treatment (01/31/25 ) Completed Orders - DELMER MCCABE ONLINE USER EXPERIENCE STRATEGIST Ipratropium/Albuterol Nebule (Ipratrop/A (01/31/25 09:05) Dexamethasone Inj (Decadron 10mg/Ml Inj) (01/31/25 09:12) Vital Signs 01/31/25 01/31/25 01/31/25 01/31/25 08:02 09:19 09:26 09:49 Temp 97.8 Pulse 112 93 103 96 Resp 16 18 18 20 B/P (MAP) 152/107 159/118 (132) Pulse Ox 99 98 100 97 O2 Delivery Room Air* Room Air* O2 Flow Rate 0 0 0 0 FiO2 21 21 Laboratory Tests Test 01/31/25 08:40 Influenza Type A Antigen Negative Influenza Type B Antigen Negative SARS-CoV-2 Antigen (Rapid) Negative Medical Decision Making Additional information obtaine: N/A Findings The patient's complaint or primary flu or viral symptoms. I suspect asthma exacerbation is the large contributor to his symptoms treated him with a breathing treatment and I am going to discharge him with a an inhaler. In addition I gave him dexamethasone while in the ED Breathing treatment and steroids patient reported largely improved symptoms Heart Score: 2 Differential Dx:Considerations: Include: anxiety, asthma, bronchitis, cardiogenic shock, CHF, COPD, dysrhythmia, hypertension, accelerated, hypertension, essential, hypertension, malignant, hyperventilation, hyponatremia, myocardial infarction, panic attack, pneumonia, pneumonitis, pneumothorax, PSVT, pulmonary embolism, respiratory distress, respiratory failure, sinusitis, upper resp. infection, other Departure Disposition: 01 HOME / SELF CARE / HOMELESS Impression: Primary Impression: Viral infection Additional Impressions: Asthma Bronchospasm Condition: Improved Discharge Instructions: Asthma Action Plan, Adult Referrals: NO PRIMARY CARE PROVIDER (PCP) Prescriptions albuterol inhaler (Pro-Air Inhaler) 8.5 Gm Inhaler 2 PUFFS INH Q4HPRN PRN for wheezing for 30 Days, #18 GM Prov: DELMER MCCABE NP 01/31/25 Signature Scribe Signature: r Attestation: Scribed for Delmer Mccabe Claims Examiner by Delmer Ledezma NP . 01/31/25 09:10 DELMER MCCABE NP Jan 31, 2025 09:11
[2025-01-31 09:16] LABS: INFLUENZA TYPE A ANTIGEN RAPID NEGATIVE (Negative); INFLUENZA TYPE B ANTIGEN RAPID NEGATIVE (Negative)
[2025-01-31] MEDS: ipratropium/albuterol 3ml nebule NEB ONE (09:17)
[2025-01-31 09:19] VITALS: PULSE 93; RESP 18; O2SAT 98
[2025-01-31 09:26] VITALS: PULSE 103; RESP 18; O2SAT 100
--- NOTE | 2025-01-31 09:28 | RADIOLOGY REPORT ---
DI CHEST,TWO VIEWS CLINICAL HISTORY: Shortness of breath, cough COMPARISON: DI CHEST,TWO VIEWS on DOS: 06/16/23, DI CHEST,SINGLE VIEW on DOS: 02/01/23, CHEST,SINGLE VIEW on DOS: 11/29/21 TECHNIQUE: Frontal and lateral view of the chest was obtained FINDINGS: Lines and Tubes: None Lungs: No focal consolidation. Elevation of the left hemidiaphragm. Pleura: No effusion. No pneumothorax. Cardiomediastinal contours: Unremarkable Bones: No acute osseous abnormality. IMPRESSION: No acute cardiopulmonary disease.
[2025-01-31] MEDS: dexamethasone sod phosphate 10mg/ml inj PO STA (09:47)
[2025-01-31 09:49] VITALS: BP 159/118; PULSE 96; RESP 20; O2SAT 97
== END 2025-01-31 09:58 | disposition home or self-care (01) ==
LOC: ER 08:00
DX: B34.9 Viral infection, unspecified (principal); J98.01 Acute bronchospasm; I10 Essential (primary) hypertension; J44.9 Chronic obstructive pulmonary disease, unspecified; Z88.5 Allergy status to narcotic agent; Z79.899 Other long term (current) drug therapy; Z98.890 Other specified postprocedural states; Z72.89 Other problems related to lifestyle; Z20.822 Contact with and (suspected) exposure to COVID-19
CPT/HCPCS: 36415; 71046; 87804; 87811; 94640; 99284; J1100; 94760